=== PATIENT | female | born 1960 | race Caucasian/White ===

== ENCOUNTER 2020-07-11 18:02 | Emergency (ER) | payer OTHER ==
[~2020-07-11] VITALS: Ht 154.9 cm; Wt 68.5 kg
[2020-07-11 18:08] VITALS: Ht 154.9 cm; Wt 68.5 kg
[2020-07-11 19:34] LABS: BASOPHIL % 0.3 % (0-2); PLATELET COUNT 151 x10^3mcL (130-400); RED CELL DISTRIBUTION WIDTH 14.4 % (11.5-14.5)
[2020-07-11 19:43] LABS: CALCIUM 9.1 mg/dL (8.5-10.1); CARBON DIOXIDE 25.6 mmol/L (21-32); CHLORIDE SERUM 100 mmol/L (98-107); GFR1 > 60 mL/min; GLUCOSE SERUM 115 mg/dL (74-106); SODIUM SERUM 136 mmol/L (136-145)
[2020-07-11 19:48] LABS: ALBUMIN 3.9 g/dL (3.4-5.0); ALKALINE PHOSPHATASE 158 U/L (46-116); ALT/SGPT 66 U/L (14-59); AST/SGOT 37 U/L (15-37); BILIRUBIN TOTAL 0.41 mg/dL (0.20-1.00); LIPASE 141 IU/L (73-393); TOTAL PROTEIN, SERUM 8.2 g/dL (6.4-8.2)
[2020-07-11 20:12] VITALS: BP 100/67
== END 2020-07-11 20:12 | disposition home or self-care (01) ==
LOC: ED 18:02
PROVIDERS: Emergency Medicine
DX: K80.20 Calculus of gallbladder without cholecystitis without obstruction (principal); Z85.038 Personal history of other malignant neoplasm of large intestine
CPT/HCPCS: Q0092